=== PATIENT | male | born 1950 | race Two or more races ===

== ENCOUNTER 2021-06-06 09:13 | Outpatient (AMB) | payer MEDICARE, MEDICAID, SELFPAY ==
--- NOTE | 2021-06-06 09:48 | URONOTE_ITS ---
Intake Vital Signs 06/06/21 09:49 Height 1.57 m Height Method Stated Weight 56.302 kg Weight Measurement Method Standing Scale BMI 22.6 Temp 99.7 F Temp Source Temporal Artery Scan Pulse 106 H Pulse Source Monitor Respiration 19 BP 98/64 Blood Pressure Source Automatic Cuff Blood Pressure Location Left Upper Arm Position Sitting Intake Visit Reasons: Uro Cystocopy in office Allergy Allergies No Known Allergies Allergy (Verified 06/06/21 09:50) Nurse Note: KARYN Enriquez- patient to follow up in ten days for biopsy results Current Vital Signs Height Height Method Weight Weight Measurement Method Body Mass Index Temperature Temperature Source 1.57 m Stated 56.302 kg Standing Scale 22.6 99.7 F Temporal Artery Scan 06/06/21 09:49 06/06/21 09:49 06/06/21 09:49 06/06/21 09:49 06/06/21 09:49 06/06/21 09:49 06/06/21 09:49 Pulse Rate Pulse Source Respiratory Rate Blood Pressure Blood Pressure Source Blood Pressure Location Blood Pressure Position 106 H Monitor 19 98/64 Automatic Cuff Left Upper Arm Sitting 06/06/21 09:49 06/06/21 09:49 06/06/21 09:49 06/06/21 09:49 06/06/21 09:49 06/06/21 09:49 06/06/21 09:49 Nursing Documentation Social History Living Situation History Lives With: Spouse Housing: House Tobacco History Smoking Status: Never smoker Packs per Day: 5 Pack-Years: 20 Alcohol History Alcohol Intake: Former Alcohol Intake Frequency: holidays/special occasions only Substance Use History Substance Use: 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 ago Office Procedures Uro Cystoscopy in office Office Procedure Informed consent given: Yes Consent signed: Yes Time out staff in room: Yes IMMEDIATELY PRIOR TO START OF PROCEDURE: ALL MEMBERS of the procedural team are in attendance and actively involved together in the TIME-OUT and verified as applies to the patient:: Correct Patient Identity, Correct Site, Consent Signed and Accurate, Team Agrees on Procedure, Patient has completed pre-procedure preparations, Antibiotic prophylaxis, Pre-procedure medications, Review of allergies and potential blood loss, Safety Precautions are in place based on patient history, Correct Patient Positioning, Procedural site marked by appropriate provider, Procedural site marking is visible after prep and draping, Relevant images and results are properly labeled and displayed, Reqd blood products, implants, devices and necessary equip available, Specimen container(s) and lab req(s) are available & labeled properly., H&P, assessments, and other pertinent documents are available and Antibiotics are administered, antibiotic irrigation fluids prepared. Time out verified: Yes Time out date: 06/06/21 Time out time: 10:29 Sterilizing agent: betadine Type of anesthesia: local Type of scope: flexible Tumor present: No Stone present: No Patient tolerated procedure: well Complications: No Visual taken: Yes Charges for this visit: My Supervising Practitioner for this visit is:: Karl Rubin Cystoscopy w/Biopsy: Yes Uro Level of Care Nursing/Assessment/Reassessment Patient Status: Established Patient Nursing Assessment/Reassessment: Update [facility] data in EMR, Vital Signs and Medication Reconciliation Coordination of Care: Comp Pt/Fam Ed for care and Consent,records obtained Miscellaneous Interventions: Phys Asssit w/procedure Established Patient Point Assignment: 80 Procedure IM Injection: Yes Transrectal Ultrasound: No Office Meds lorazepam Performing Provider: Karl Rubin MD Administered by: LIZANDRO Lawson on 06/06/21 10:20 Dose Route Admin Location Lot Number Expiration Date [facility] [employer] 1 mg PO gentamicin Performing Provider: Karl Rubin MD Administered by: LIZANDRO Lawson on 06/06/21 10:20 Dose Route Admin Location Lot Number Expiration Date [facility] [employer] 120 mg IM right glut lidocaine HCl Performing Provider: Karl Rubin MD Administered by: LIZANDRO Lawson on 06/06/21 10:20 Dose Route Admin Location Lot Number Expiration Date [facility] [employer] 1 applic topical [facility] Office Visit Office Visit Date of visit:: June 06, 2021 09:13 Allergies & Home Medications: Allergies No Known Allergies Allergy (Verified 05/20/21 13:57) Visit: Reason for visit: [] Office Visit findings: [] Urology Cystoscopy Cystoscopy Procedure Date: June 06, 2021 09:13 Pre-procedure diagnosis:: 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 His IPSS score is 33 quality of life due to symptom is 6 patient had placement of Jacobson catheter subsequently the catheter was removed I have started him on intermittent catheterization patient is on also Flomax and tamsulosin he had paraphimosis which was reduced by me. He was recommended cystoscopic examination procedure and complications were discussed with the patient in great detail informed consent is obtained Procedure Description:: The patient received 120 mg Gentamicin IM pre-op prophylaxis. Informed consent was obtained for the procedure. The patient was prepped in a sterile manner. Local anesthetic was placed into the urethra. Cystoscopy was then performed. The urethra had no intrinsic lesions up to the prostatic fossa. There was [bilobar/trilobar] prostatic enlargement. Examination of the bladder revealed no evidence of cancerous lesions, papillary or polyp type lesions or stones. There was is a lesion in the posterior bladder wall in the trigonal area biopsy was obtained fulguration was carried out trabeculation with cellules and diverticula. Both ureters were putting out clear urine. The bladder was completely drained and the scope removed. The patient tolerated the procedure well. Post-op instructions were given. The patient is to call the office should any problems occur. Patient disposition because patient is on intermittent catheterization uroflow bladder scan could not be performed his elevated PSA was a result of indwelling Jacobson catheter my recommendation is simple robotic prostatectomy and MRI of the prostate gland the weight of the prostate gland is 108 cc cardiology clearance is instituted
[2021-06-06 09:49] VITALS: BP 98/64; PULSE 106; RESP 19; TEMP 37.6; BMI 22.6
[2021-06-06 09:56] LABS: Bilirubin,Urine Clinitek Negative (Negative); Blood,Urine Clinitek Trace-lysed (Negative); Glucose, Urine Clinitek Negative (Negative); Ketones,Urine Clinitek Negative (Negative); Leukocyte Esterase,Urine Clin Negative (Negative); Nitrite,Urine Clinitek Negative (Negative); PH,Urine Clinitek 5.5 (5.0-7.0); Protein,Urine Clinitek 2+ (Neg - Trace); Specific Gravity,Urine Clin >= 1.030 (1.001-1.030); Urobilinogen,Urine Clinitek 0.2 mg/dL (0.0-1.0)
== END 2021-06-06 12:25 | disposition home or self-care (01) ==
LOC: HODURO 09:13
PROVIDERS: Visit Provider Urology

== ENCOUNTER 2024-06-21 15:13 | Emergency (ER) | payer MEDICARE, MEDICAID, SELFPAY ==
[2024-06-21] VITALS (7 sets, daily range): BP systolic 130–160; BP diastolic 68–86; PULSE 94–102; RESP 18; TEMP 36.3–36.8; O2SAT 94–100
--- NOTE | 2024-06-21 16:17 | PD.EDRME ---
Rapid Medical Screening Exam RME Arrival date/time: 06/21/24 15:13 74-year-old male sent in by PCP for abnormal potassium values Chief Complaint: Recheck/Abnormal Lab/Rx Time Seen by Provider: 06/21/24 15:18 Vital signs: Vital Signs Temperature 98.3 F 06/21/24 15:20 Pulse Rate 98 06/21/24 15:20 Respiratory Rate 18 06/21/24 15:20 Blood Pressure 144/68 H 06/21/24 15:20 Pulse Oximetry (%) 100 06/21/24 15:20 Oxygen Delivery Method Room Air 06/21/24 15:20
--- NOTE | 2024-06-21 17:08 | PD.EDADULT ---
ED General RME/HPI General Chief complaint: Recheck/Abnormal Lab/Rx Stated complaint: HIGH K+ Time Seen by Provider: 06/21/24 15:18 Arrival date/time: 06/21/24 15:13 CC: Hyperkalemia HPI patient presents to the ER via EMS after blood draw yesterday was called him stating he had elevated potassium level the patient has no prior history of similar events. The patient is a diabetic, states he has no symptoms shortness of breath difficulty breathing headache nausea vomiting or diarrhea. RME / HPI RME / HPI narrative: 06/21/24 15:13 74-year-old male sent in by PCP for abnormal potassium values Related Data Home Medications ?Medication ?Instructions ?Recorded ?Confirmed glipizide 5 mg tablet 1 tab PO BID 01/23/22 08/03/22 hydrocodone 5 mg-acetaminophen 325 1 tab PO TID PRN Pain 01/23/22 08/03/22 mg tablet sitagliptin phosphate 50 mg tablet 1 tab PO DAILY 01/23/22 08/03/22 (Januvia) Allergies Allergy/AdvReac Type Severity Reaction Status Date / Time spinach Allergy Verified 08/03/22 12:05 Review of Systems Review of Systems Narrative Review of Systems: GEN: No fever, no chills, no weight loss EYES: No discharge, no visual changes, no pain HEENT: No ear pain, no congestion, no sore throat PULM: No shortness of breath, no cough, no congestion CV: No chest pain, no dyspnea on exertion, no palpitations GI: No nausea, no vomiting, no diarrhea, no pain, no constipation : No frequency, no urgency, no dysuria MUSC/SKEL: No joint pain, no back pain SKIN: No rash PSYCH: No hallucinations, no depression HEME/LYMPH: No easy bleeding or bruising tendencies NEURO: No weakness, no headache Past Medical History Past Medical History NEUROLOGIC: Negative Neurological Disorders or Seizures CARDIAC: Negative Cardiac Disorders or Congestive Heart Failure RESPIRATORY: Negative Chronic Obstructive Pulmonary Disease (COPD) or Asthma GASTROINTESTINAL: Negative Gastrointestinal Disorders GENITOURINARY: Positive Genitourinary Disorders, Renal Disease and Benign Prostatic Hyperplasia; Negative Kidney Stones, Polycystic Kidney Disease, Neurogenic Bladder, Inguinal Hernia or Dialysis MUSCULOSKELETAL: Positive Musculoskeletal Disorders ENT: Positive Cataracts ENDOCRINE: 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); Negative Diabetes Mellitus Type 1 HEMATOLOGIC: Negative Blood Disorders or Sickle Cell Disease OTHER HISTORY: Positive Hospitalization (Discharged last 04/02/2021 - [facility]); Negative Falls, Blood Transfusions, Blood Transfusion Reaction, Anesthesia Reactions, Chemotherapy or Cancer Family History FAMILY HISTORY: Positive Family Cardiac Disorders; Negative Family Cancer Surgical History SURGICAL: Positive Transurethral Resection; Negative Cardiac Surgery, Endocrine Surgery or Abdominal Surgery Social History SMOKING STATUS: Never smoker ED Exam Narrative Physical exam: [General: Not in any acute distress Head normocephalic HEENT: Within acceptable limits Neck is supple nontender Chest equal chest rise nontender to palpation Respiratory: Clear to auscultation no wheezes crackles or rubs CV: Rate rhythm is regular no murmurs rubs or clicks Abdomen is flat, soft nontender no masses positive bowel sounds all 4 quadrants Back: No CVA tenderness no spinous process tenderness from cervical spine thoracic and lumbar spine Skin: Intact no petechiae rash induration ulceration or crepitus Extremities: Moving all extremity against resistance cap refill less than 2 seconds neurosensory intact Neuro: Awake alert oriented x3 Glascow coma 15 no focal deficits] Course Quality Measures none Orders Category Date Time Status CMP [Comprehensive Metabolic Panel] Stat Lab 06/21/24 17:18 Completed Mag [Magnesium] Stat Lab 06/21/24 17:18 Completed Potassium Stat Lab 06/21/24 21:34 Completed Urine Culture Stat Lab 06/21/24 19:24 Received ALBUTEROL RT 0.5ml [Proventil Rt 0.5ml] Med 06/21/24 18:52 Discontinued 2.5 mg INH X1 ONE Calcium Gluconate 10% Inj Med 06/21/24 18:52 Discontinued 1 gm IV X1 ONE Dextrose 50% Syr [D50w Syringe Abboject] Med 06/21/24 18:52 Discontinued 25 ml IV X1 ONE Insulin Regular Med 06/21/24 18:52 Discontinued 5.9 unit IV X1 ONE Sodium Chloride Rt Gricelda 0.9% [NS Rt Gricelda 0.9%] Med 06/21/24 18:52 Active 3 ml INH PRN PRN Vital Signs Vital signs: Vital Signs Temperature 98.3 F 06/21/24 15:20 Pulse Rate 98 06/21/24 15:20 Respiratory Rate 18 06/21/24 15:20 Blood Pressure 144/68 H 06/21/24 15:20 Pulse Oximetry (%) 100 06/21/24 15:20 Oxygen Delivery Method Room Air 06/21/24 15:20 MDM Patient data External records reviewed:: [facility] previous records Clinical information provided by:: patient Social determinants that could affect healthcare access:: none Patient has the following chronic illnesses:: Diabetes How is presenting disease/condition affected by chronic disease/condition?: uneffected by Evaluation data The following diagnostics were reviewed and interpreted by me:: lab results Lab and/or radiology exams considered but not ordered:: CMP shows the patient has a potassium of 6 BUN of 26 creatinine 1.4 glucose of 250 Repeat potassium is 5.0 Interpretation Summary: Hyperkalemia Medications Medications considered but not ordered:: None Medication administrations:: Medication Administration History Sodium Chloride (Sodium Chloride Rt Gricelda 0.9% 3 Ml Nebu) 3 ml INH PRN PRN PRN Reason: SOLN Stop: 07/21/24 18:51 Last Admin: 06/21/24 20:49 Dose: 3 ml Documented By: SARIAH Discontinued Medications Albuterol (Albuterol Rt 2.5 Mg/0.5 Ml Nebu) 2.5 mg INH X1 ONE Stop: 06/21/24 18:53 Last Admin: 06/21/24 20:49 Dose: 2.5 mg Documented By: SARIAH Calcium Gluconate (Calcium Gluconate 10% Inj 1 Gm/10 Ml Vial) 1 gm IV X1 ONE Stop: 06/21/24 18:53 Last Admin: 06/21/24 20:15 Dose: 1 gm Documented By: OC Dextrose (Dextrose 50%-Water Inj 50 Ml Syringe) 25 ml IV X1 ONE Stop: 06/21/24 18:53 Last Admin: 06/21/24 20:10 Dose: 25 ml Documented By: OC Insulin Human Regular (Insulin Hum Regular 1 Unit/0.01 Ml (Per Unit)) 5.9 unit 0.1 unit/kg (5.9 unit) IV X1 ONE Stop: 06/21/24 18:53 Last Admin: 06/21/24 20:12 Dose: 5.9 unit Documented By: OC Co-signed By: CASSIE None Consultations Consultation(s) initiated? (list below): No Diagnosis Differential Diagnosis ED Complaint MDM: Hyperkalemia renal failure electrolyte imbalance Most likely diagnosis given after review of the tests above:: Hyperkalemia Admission Indicated Admission indicated?: not indicated Explain why admission is indicated or not indicated:: Stable for discharge Admission Request Was there a request for admission?: No Disposition Plan Disposition Plan: Discharge Discharge Attestation Discharge Attestation: The patient and all family members were given an opportunity to ask questions and understood the discharge instructions. Discharge instructions specifically effects, indications for sooner follow up or return to the emergency department, and the expected course of current diagnosis. Patient condition: Stable Medical Decision Making Differential Diagnosis Differential Diagnosis: Hyperkalemia renal failure electrolyte imbalance Lab Data 06/21/24 21:34 Labs: Lab Results 06/21/24 06/21/24 Range/Units 17:18 21:34 Sodium 140 (136-145) mMol/L Potassium 6.0 H 5.0 D (3.4-5.1) mMol/L Chloride 107 (98-107) mMol/L Carbon Dioxide 27.3 (20.0-31.0) mMol/L Anion Gap 6 L (7-16) BUN 26 H (9-23) mg/dL Creatinine 1.4 H (0.6-1.3) mg/dL Estim Creat Clear Calc Not Performed. eGFR 53 L (60 - ) See Note BUN/Creatinine Ratio 19 (12-20) Ratio Glucose 250 H (74-106) mg/dL Calculated Osmolality 292 (275-295) Calcium 9.6 (8.3-10.6) mg/dL Corrected Calcium 9.6 (8.5-10.1) mg/dL Magnesium 2.0 (1.6-2.6) mg/dL Total Bilirubin 0.6 (0.3-1.2) mg/dL AST 16 (0-34) U/L ALT 16 (10-49) U/L Alkaline Phosphatase 57 (46-116) U/L Total Protein 6.7 (5.7-8.2) gm/dL Albumin 4.1 (3.4-4.8) gm/dL Globulin 2.6 (2.3-3.5) gm/dL Albumin/Globulin Ratio 1.6 (1.2-2.2) Discharge Plan Plan Patient Disposition: HOME (Self Care) Patient condition on transfer: Stable Prescriptions/Referrals Prescriptions/Med Rec: No Action hydrocodone-acetaminophen 5-325 mg tablet 1 tab PO TID PRN (Reason: Pain) glipizide 5 mg tablet 1 tab PO BID Januvia 50 mg tablet 1 tab PO DAILY Referrals: Garcia,Maria Teresa, FRINGE KNOTTER [Primary Care Provider] - In 1 week Problem List Clinical Impression: Hyperkalemia Patient/Caregiver Discharge Instructions Education Materials: Hyperkalemia Dc Print Language: Cymro Stand Alone Forms: Kelly Award Info., Patient Portal Info Letter PA/APPLIED RESEARCH DIRECTOR Supervising Physician PA/APPLIED RESEARCH DIRECTOR Supervising Physician: Unruly Kamara ENP
--- NOTE | 2024-06-21 17:15 | PC.NURSE ---
PT REPORTS THAT HIS DOCTOR SENT HIM HERE FOR HIS POTASSIUM. STATES HE THINKS THEY MADE A MISTAKE BECAUSE HE FEELS FINE HAS NO SYMPTOMS. LAB AT BEDSIDE TO GET BLOOD. VSS ON TELE
[2024-06-21 17:44] LABS: Alanine Aminotransferase 16 U/L (10-49); Albumin, Serum 4.1 gm/dL (3.4-4.8); Albumin/Globulin Ratio 1.6 (1.2-2.2); Alkaline Phosphatase 57 U/L (46-116); Anion Gap 6 (7-16); Aspartate Amino Transferase 16 U/L (0-34); BUN/Creatinine Ratio 19 Ratio (12-20); Bilirubin,Total 0.6 mg/dL (0.3-1.2); Blood Urea Nitrogen 26 mg/dL (9-23); Calcium 9.6 mg/dL (8.3-10.6); Calcium (Corrected) 9.6 mg/dL (8.5-10.1); Carbon Dioxide 27.3 mMol/L (20.0-31.0); Chloride 107 mMol/L (98-107); Creatinine (Component) 1.4 mg/dL (0.6-1.3); Globulin 2.6 gm/dL (2.3-3.5); Glucose 250 mg/dL (74-106); Osmolality,Calculated 292 (275-295); Sodium 140 mMol/L (136-145); Total Protein 6.7 gm/dL (5.7-8.2); eGFR 53 See Note
[2024-06-21] MEDS: DEXTROSE 50%-WATER INJ 50 ML SYRINGE 25 ML IV (20:10)
[2024-06-21] MEDS: INSULIN HUM REGULAR 1 UNIT/0.01 ML (PER UNIT) 5.9 UNIT IV (20:12)
[2024-06-21] MEDS: CALCIUM GLUCONATE 10% INJ 1 GM/10 ML VIAL IV (20:15)
[2024-06-21] MEDS: ALBUTEROL RT 2.5 MG/0.5 ML NEBU INH (20:49)
[2024-06-21] MEDS: SODIUM CHLORIDE RT SOL 0.9% 3 ML NEBU INH (20:49)
== END 2024-06-21 23:10 | disposition home or self-care (01) ==
PROVIDERS: Physician Assistant; Registered Nurse General Practice; Emergency Provider Emergency Medicine; PCP Nurse Practitioner Family
DX: E87.5 Hyperkalemia (principal); E11.9 Type 2 diabetes mellitus without complications
CPT/HCPCS: 36415; 80053; 83735; 84132; 87077; 87086; 87186; 94640; 99284; J0612; J1815